=== PATIENT | male | born 1945 | race Two or more races ===

== ENCOUNTER 2018-05-23 18:12 | Emergency (ER) | payer MEDICARE, BC ==
[~2018-05-23] VITALS: Ht 180.3 cm; Wt 98.9 kg
[2018-05-23] MEDS ORDERED: HYDROCODONE/APAP 5-325MG TABLET ONE (19:44)
[2018-05-23] MEDS ORDERED: ONDANSETRON ODT 4 MG TAB.RAPDIS ONE (19:44)
[2018-05-23] MEDS ORDERED: HYDROCODONE/APAP 5-325MG TABLET PO ONE (19:45)
[2018-05-23] MEDS ORDERED: ONDANSETRON ODT 4 MG TAB.RAPDIS SL ONE (19:45)
--- NOTE | 2018-05-23 19:51 | NUR ---
Patient discharged to home in stable conditon. Written and verbal after care instructions given. Patient verbalizes understanding of instructions.
== END 2018-05-23 19:52 | disposition home or self-care (01) ==
LOC: ER 18:15
DX: M25.531 Pain in right wrist (principal); I10 Essential (primary) hypertension; E78.5 Hyperlipidemia, unspecified; W18.30XA Fall on same level, unspecified, initial encounter; Y93.89 Activity, other specified; Y92.89 Other specified places as the place of occurrence of the external cause; Y99.8 Other external cause status
CPT/HCPCS: 73110; A4663; Q0162